=== PATIENT | male | born 1975 | race Caucasian/White ===

== ENCOUNTER 2016-09-06 16:14 | Emergency (ER) | payer OTHER ==
[~2016-09-06] VITALS: Ht 185.4 cm; Wt 140.0 kg
[2016-09-06] MEDS ORDERED: ULTRAM 50MG TAB50 MG PO (16:50)
[2016-09-06] MEDS ORDERED: HCTZ 25MG TAB25 MG PO (17:07)
[2016-09-06] MEDS ORDERED: MOTRIN 600600 MG/TAB PO (17:07)
[2016-09-06] MEDS ORDERED: METADATEER20 PO (17:08)
[2016-09-06] MEDS ORDERED: ZOLOFT 50MG50 MG PO (17:08)
[2016-09-06] MEDS ORDERED: CLARITIN REDITA10 MG (17:09)
[2016-09-06 17:32] LABS: BASO % 0.5 % (0.0-2.0); EOS # 0.1 (0.0-0.7); EOS % 1.5 % (0-4.0); GRAN # 5.8 (1.4-6.5); GRAN % 69.8 % (42.2-75.2); HEMOGLOBIN 14.6 g/dl (13.5-18.0); LYMPH # 1.7 (1.2-3.4); MEAN CELL VOLUME 84 fl (80.0-100.0); MEAN CORPUSCULAR HEMOGLOBIN 28 pg (27.0-31.0); MEAN CORPUSCULAR HGB CONC 33 g/dl (33.0-37.0); MEAN PLATELET VOLUME 10.2 fl (7.4-10.4); MONO # 0.6 (0.1-0.6); MONO % 6.8 % (1.7-9.3); PLATELET COUNT 206 K/mm3 (130-400); RED BLOOD COUNT 5.24 M/mm3 (4.20-5.60); REDCELL DISTRIBUTION WIDTH-CV 13.1 % (11.5-14.5); WHITE BLOOD COUNT 8.3 K/mm3 (4.8-10.8)
[2016-09-06 17:36] LABS: PH 5 (5-8); SQUAMOUS EPITHELIAL None Seen /hpf; URINE APPEARANCE Clear; URINE BACTERIA None Seen /hpf; URINE BILIRUBIN Negative (NEGATIVE); URINE BLOOD 1+ (NEGATIVE); URINE COLOR Yellow; URINE GLUCOSE Negative (NEGATIVE); URINE KETONE Negative (NEGATIVE); URINE RBC 0-2 /hpf; URINE UROBILINOGEN Negative (NEGATIVE); URINE WBC 0-2 /hpf
[2016-09-06 17:48] LABS: ALANINE AMINOTRANSFERASE 34 U/L (21-72); ALBUMIN 4.4 gm/dL (3.5-5.0); ALKALINE PHOSPHATASE 79 U/L (50-136); ANION GAP 11 mmol/L (7-16); BILIRUBIN,TOTAL 0.9 mg/dL (0.0-1.0); BLOOD UREA NITROGEN 19 mg/dL (9-20); CALCIUM 9.3 mg/dL (8.4-10.2); CARBON DIOXIDE 29 mmol/L (22-30); CHLORIDE 98 mmol/L (98-107); CREATINE KINASE 76 U/L (55-170); GLUCOSE 89 mg/dL (74-106); LIPASE 678 U/L (23-300); POTASSIUM 3.8 mmol/L (3.4-5.0); SODIUM 139 mmol/L (137-145); TOTAL PROTEIN 8.1 gm/dL (6.4-8.2)
[2016-09-06 17:54] LABS: C-REACTIVE PROTEIN < 0.5 mg/dL (0.0-0.9)
[2016-09-06 18:05] LABS: INFLUENZA B NEGATIVE
[2016-09-06 19:19] VITALS: BP 144/95; PULSE 77; TEMP 99
== END 2016-09-06 19:22 | disposition home or self-care (01) ==
LOC: COL.ER 16:14
PROVIDERS: Emergency Medicine
DX: J02.9 Acute pharyngitis, unspecified (principal); R51 Headache; F32.9 Major depressive disorder, single episode, unspecified; I10 Essential (primary) hypertension; M54.89 Other dorsalgia; F41.9 Anxiety disorder, unspecified
CPT/HCPCS: J1885; J7030

== ENCOUNTER → 2017-06-21 | Outpatient (CLI) | payer OTHER ==
[~2017-06-21] MED LIST: CLARITIN REDITA10 MG; HCTZ 25MG TAB25 MG PO; METADATEER20 PO; MOTRIN 600600 MG/TAB PO; ULTRAM 50MG TAB50 MG PO; ZOLOFT 50MG50 MG PO
== END ==
LOC: BHSO 10:59
DX: F43.10 Post-traumatic stress disorder, unspecified (principal)

== ENCOUNTER → 2017-07-26 | Outpatient (CLI) | payer OTHER | LOC: BHSO 08:02 | DX: F90.0 Attention-deficit hyperactivity disorder, predominantly inattentive type (principal) | CPT/HCPCS: G0463 ==

== ENCOUNTER → 2017-09-21 | Outpatient (CLI) | payer OTHER | LOC: BHSO 15:44 | DX: F43.10 Post-traumatic stress disorder, unspecified (principal) | CPT/HCPCS: G0463 ==